=== PATIENT | female | born 1990 | race Caucasian/White ===

== ENCOUNTER 2019-11-18 11:02 | Emergency (ER) | payer MEDICAID ==
[~2019-11-18] VITALS: Ht 165.1 cm; Wt 71.8 kg
[2019-11-18 11:17] VITALS: Ht 165.1 cm; Wt 71.8 kg
[2019-11-18 11:38] LABS: BASOPHILS 0.2 % (0-2); EOSINOPHILS 2.1 % (0-7); HEMOGLOBIN 11.7 g/dL (12-16); IMMATURE GRANULOCYTES 0.3 % (0-5); LYMPHOCYTES 31.7 % (15-50); MCH 25.5 pg (26.0-34.0); MCHC 31.6 g/dL (31.0-37.0); MCV 80.6 fL (80.0-100.0); MEAN PLATELET VOLUME 10.6 fL (7.4-10.4); MONOCYTES 10.3 % (2-11); NEUTROPHILS 55.4 % (40-80); PLATELET COUNT 266 10x3/uL (130-400); RBC 4.59 10x6/uL (4.00-5.40); RDW 13.8 % (11.5-14.5); WBC 6.3 10x3/uL (4.8-10.8)
[2019-11-18 11:48] LABS: CALC OSMOLALITY 277 mosm/kg (275-300); CARBON DIOXIDE 29.1 mmol/L (21.0-32.0); CHLORIDE - SERUM 103 mmol/L (98-107); CREATININE - SERUM 0.7 mg/dL (0.6-1.3); GLUCOSE 90 mg/dL (74-106); POTASSIUM - SERUM 3.5 mmol/L (3.5-5.1); SODIUM 140 mmol/L (136-145); UREA NITROGEN 11 mg/dL (7-18); eGFR NON AFRICAN AMERICAN > 90 mL/min (90-120)
[2019-11-18 11:51] LABS: APPEARANCE CLEAR (CLEAR); BILIRUBIN NEGATIVE (NEGATIVE); COLOR YELLOW (YELLOW); GLUCOSE NEGATIVE (NEGATIVE); KETONE NEGATIVE (NEGATIVE); NITRITE NEGATIVE (NEGATIVE); PROTEIN NEGATIVE (NEGATIVE); UROBILINOGEN NORMAL (NORMAL)
[2019-11-18 11:54] LABS: ALKALINE PHOSPHATASE 58 U/L (46-116); ALT (SGPT) 30 U/L (10-68); AMYLASE - SERUM 53 U/L (25-115); LIPASE 88 U/L (73-393); PROTEIN - SERUM 7.8 g/dL (6.4-8.2)
[2019-11-18 11:55] LABS: HCG URINE NEGATIVE (NEGATIVE)
[2019-11-18 13:55] VITALS: BP 122/68
== END 2019-11-18 13:56 | disposition home or self-care (01) ==
LOC: D.ER 11:02
PROVIDERS: Emergency Medicine
DX: R10.9 Unspecified abdominal pain (principal)